=== PATIENT | female | born 1990 | race Caucasian/White ===

== ENCOUNTER 2017-02-07 22:34 | Inpatient (IN) | payer MEDICAID ==
[~2017-02-07] VITALS: Ht 157.4 cm; Wt 73.2 kg
[2017-02-07 22:43] VITALS: BP 126/76
[2017-02-07 23:14] LABS: BILIRUBIN NEGATIVE (NEGATIVE); BLOOD 2+ (NEGATIVE); CLARITY SL CLOUDY (CLEAR); COLOR YELLOW (YELLOW); GLUCOSE NEGATIVE (NEGATIVE); KETONE NEGATIVE (NEGATIVE); LEUKO ESTERASE NEGATIVE (NEGATIVE); NITRITE NEGATIVE (NEGATIVE); UROBILINOGEN 0.2 E.U./dl (0.2-1.0)
[2017-02-07 23:21] LABS: EPITHELIAL CELLS 40-45
[2017-02-07 23:22] LABS: BACTERIA TRACE
[2017-02-07 23:24] LABS: URINE AMPHETAMINES < 1000 (1000ng/ml); URINE BARBITURATES < 200 (200ng/ml); URINE BENZODIAZEPINES < 200 (200ng/ml); URINE CANNABINOIDS (THC) < 50 (50ng/ml); URINE COCAINE > 300 (300ng/ml); URINE METHADONE < 300 (300ng/ml); URINE OPIATES < 300 (300ng/ml)
[2017-02-07 23:27] LABS: URINE PHENCYCLIDINE < 25 (25ng/ml)
[2017-02-08] VITALS: BP 111/58
--- NOTE | 2017-02-08 | NUR ---
A 26, admitted to 5E, under the services of RHONDA Katz DO with a diagnosis of MYALGIA, ANXIETY, HEROIN WITHDRAWAL. Chief complaint is MYALGIA, ANXIETY. Patient arrived via wheel chair from ER. Monitor applied. Initial assessment completed. Vital signs taken and recorded. RHONDA KATZ DO notified of admission to the unit. Orders received. See assessment for past medical history, medications and allergies. Patient and/or family oriented to unit. visitation policy reviewed. Clothing/patient valuable form completed. DAVY BROWNE
[2017-02-08 00:30] VITALS: BP 111/58
[2017-02-08 00:41] LABS: BASO % 0.3 % (0.0-1.0); EOS # 0.2 10*3/uL (0.0-0.4); EOS % 1.5 % (1.0-4.0); HEMATOCRIT 41.8 % (37.0-47.0); LYMPH # 2.2 10*3/uL (1.3-4.4); LYMPH % 19.7 % (27.0-41.0); MEAN CORPUSCULAR HGB 28.5 pg (27.0-31.0); MEAN CORPUSCULAR HGB CONC 33.5 g/dl (33.0-37.0); MEAN PLATELET VOLUME 9.4 fl (9.6-12.3); MONO # 1.1 10*3/uL (0.1-1.0); MONO % 9.3 % (3.0-9.0); NEUT # 7.7 10*3/uL (2.3-7.9); NEUT % 68.7 % (47.0-73.0); PLATELET COUNT AUTOMATED 289 10*3/uL (130-400); RED BLOOD COUNT 4.92 10*6/uL (4.10-5.10); RED CELL DISTRI WIDTH 13.2 % (0-14.5); WHITE BLOOD COUNT 11.2 10*3/uL (4.8-10.8)
[2017-02-08 00:59] LABS: ALBUMIN 3.8 gm/dl (3.1-4.5); ALKALINE PHOSPHATASE 50 U/L (45-117); BUN 11 mg/dl (7-24); CHLORIDE 100 mmol/L (98-107); CREATININE 0.97 mg/dL (0.55-1.02); POTASSIUM 3.4 mmol/L (3.5-5.1); SGOT/AST 43 IU/L (3-35); SGPT/ALT 12 U/L (12-78); SODIUM 136 mmol/L (136-145); TOTAL PROTEIN 8.7 gm/dL (6.4-8.2)
[2017-02-08 01:02] LABS: BETA-HCG, QUANT < 1.0 mIU/mL (1-3); TROPONIN I < 0.015 ng/ml (<0.045)
--- NOTE | 2017-02-08 03:25 | NUR ---
PATIENT MEDICATED WITH BENTYL, MOTRIN, REQUIP, ROBAXIN, VISTARIL AND TRAZODONE AT 0117 FOR RESTLESS LEGS, ANXIETY, INSOMNIA, MUSCLE PAIN AND LEG PAIN WITH EFFECTIVE RESULTS NOTED. RESTING IN BED WITH EYES CLOSED AT THIS TIME. NO SIGNS OR SYMPTOMS OF DISTRESS NOTED. WILL CONTINUE TO MONITOR. CALL LIGHT IN REACH.
--- NOTE | 2017-02-08 07:30 | NUR ---
PT AWAKE, ALERT, ORIENTED X3. RESPIRATIONS EASY, REGULAR, NON-LABORED. NO COMPLAINTS AT THIS TIME. CALL LIGHT IN REACH. BED IN LOWEST POSITION. SHIFT ASSESSMENT COMPLETE.
[2017-02-08 08:00] VITALS: BP 90/44
--- NOTE | 2017-02-08 09:32 | NUR ---
PT GIVEN PRN PO ROBAXIN AND VISTARIL FOR COMPLAINTS OF MUSCLE ACHES AND ANXIETY.
--- NOTE | 2017-02-08 11:33 | NUR ---
Pt off floor for KUB. Urine cup in room to obtain urine sample.
[2017-02-08 12:45] VITALS: BP 101/46
--- NOTE | 2017-02-08 14:30 | NUR ---
PT LEFT THE FLOOR AMA
[2017-02-09 07:07] LABS: HEPATITIS B SURFACE AG Negative (Negative); HEPATITIS C VIRUS ANTIBODY 0.1 s/co (0.0-0.9); HIV 1+2 AB + HIV1 P24 AG Non Reactive (Non Reactive)
== END 2017-02-08 16:51 | disposition left against medical advice (07) | DRG 894 ==
LOC: ED 22:34 → 5E 23:29 → EDHOLD 23:29 → 5E 23:49
PROVIDERS: Student in an Organized Health Care Education/Training Program; ADMIT Internal Medicine
DX: F11.23 Opioid dependence with withdrawal (principal); F33.9 Major depressive disorder, recurrent, unspecified; F14.10 Cocaine abuse, uncomplicated; M79.1 Myalgia; D72.829 Elevated white blood cell count, unspecified; Z71.6 Tobacco abuse counseling; F41.1 Generalized anxiety disorder; G25.81 Restless legs syndrome; G89.29 Other chronic pain; M54.5 Low back pain; F17.210 Nicotine dependence, cigarettes, uncomplicated; R31.29 Other microscopic hematuria; Z53.21 Procedure and treatment not carried out due to patient leaving prior to being seen by health care provider